=== PATIENT | female | born 1970 | race Hispanic/Latino ===

== ENCOUNTER 2023-01-12 12:54 | Emergency (ER) | payer OTHER ==
[2023-01-12] MEDS ORDERED: KETOROLAC 30 MG/ML INJ ONE (13:56)
--- NOTE | 2023-01-12 14:48 | RAD REPORT ---
EXAM DESCRIPTION: RAD - Lumbar Spine 3 Views - 01/12/2023 2:24 pm CLINICAL HISTORY: Back pain FINDINGS: No fracture or dislocation is seen. Minimal spondylosis involves the lumbar spine
--- NOTE | 2023-01-12 14:48 | RAD REPORT ---
EXAM DESCRIPTION: Mela Single View01/12/2023 2:24 pm CLINICAL HISTORY: Chest pain COMPARISON: none FINDINGS: The lungs appear clear of acute infiltrate. The heart is normal size. Mild prominence of the mediastinum may be secondary to technique and position. PA and lateral chest series recommended
--- NOTE | 2023-01-12 15:47 | RAD REPORT ---
EXAM DESCRIPTION: Mela Masters And Nidia (2 Views)01/12/2023 3:26 pm CLINICAL HISTORY: Chest pain COMPARISON: January 12, 2023 FINDINGS: The lungs appear clear of acute infiltrate. The heart is normal size Mediastinum has a normal appearance IMPRESSION: No acute abnormalities displayed
[2023-01-12 15:55] LABS: Specific Gravity 1.008 (1.005-1.030); Urine Bacteria 20-50 /HPF (<20); Urine Bilirubin NEGATIVE (Negative); Urine Blood Trace (Negative); Urine Clarity Clear (Clear); Urine Color Colorless (Yellow); Urine Glucose NEGATIVE (Negative); Urine Protein NEGATIVE (Negative); Urine Urobilinogen Normal (Normal); Urine WBC Clump Rare /HPF (None Seen)
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
[2023-01-12] MEDS ORDERED: CYCLOBENZAPRINE 10 MG TAB ONE (16:22)
[2023-01-12 16:47] VITALS: BP 138/87; TEMP 98.4; O2SAT 100
== END 2023-01-12 16:37 | disposition home or self-care (01) ==
LOC: ER 12:54
DX: S30.0XXA Contusion of lower back and pelvis, initial encounter (principal); S20.20XA Contusion of thorax, unspecified, initial encounter; N39.0 Urinary tract infection, site not specified; V49.59XA Passenger injured in collision with other motor vehicles in traffic accident, initial encounter; I10 Essential (primary) hypertension
CPT/HCPCS: 71045; 71046; 72100; 81001; 87086; 87088; 96372; 99284